=== PATIENT | female | born 1995 | race Caucasian/White ===

== ENCOUNTER 2016-09-22 01:03 | Inpatient (IN) | payer OTHER ==
[2016-09-22 02:10] LABS: % IMMATURE GRANULYOCYTES 0.1 % (0.0-1.1); ABSOLUTE IMMATURE GRANULOCYTES 0.01 10^3/uL (0.00-0.10); ADD DIFF? NO; ADD MORPH? NO; ADD SCAN? NO; ATYPICAL LYMPHOCYTE FLAG 10 (0-99); FRAGMENT RBC FLAG 0 (0-99); HEMATOCRIT 41.1 % (38.0-47.0); HEMOGLOBIN 13.9 g/dL (12.6-16.3); LEFT SHIFT FLG 0 (0-99); LIPEMIA HEMOLYSIS FLAG 90 (0-99); MEAN CELL HEMOGLOBIN 27.4 pg (27.9-34.1); MEAN CELL HEMOGLOBIN CONCENTR. 33.8 g/dL (32.4-36.7); MEAN CELL VOLUME 81.1 fL (81.5-99.8); MEAN PLATELET VOLUME 10.3 fL (8.7-11.7); PLATELET CLUMPS FLAG 0 (0-99); PLATELET COUNT 330 10^3/uL (150-400); RED BLOOD CELL COUNT 5.07 10^6/uL (4.18-5.33); RED CELL DISTRIBUTION WIDTH 14.2 % (11.5-15.2)
[2016-09-22] MEDS ORDERED: traZODone 50 MG TAB PO ONE (02:11)
--- NOTE | 2016-09-22 02:17 | EDPHY ---
H & P Stated Complaint: SI Source: Patient Exam Limitations: No limitations - Personal History LMP (Females 10-55): Now Current Tetanus/Diphtheria Vaccine: Yes Current Tetanus Diphtheria and Acellular Pertussis (TDAP): Yes - Medical/Surgical History Hx Asthma: No Hx Chronic Respiratory Disease: No Hx Diabetes: No Hx Cardiac Disease: No Hx Renal Disease: No Hx Cirrhosis: No Hx Alcoholism: No Hx HIV/AIDS: No Hx Splenectomy or Spleen Trauma: No Other PMH: OCD, ADD, Anxiety, Eating Disorder - Social History Smoking Status: Never smoked Time Seen by Provider: 09/22/16 01:07 HPI/ROS: HPI The patient presents with suicidal ideation, here on an M1 hold for evaluation from the crisis Center. She has a history of depression and had a plan to drink a bottle of NyQuil in addition to taking all of her medications. She was not sure what would happen if she did this but thought that she could . She also has not been taking her Zoloft for the last several days. She denies any medical complaints. REVIEW OF SYSTEMS Constitutional: No fever, no chills. Eyes: No discharge. ENT: No sore throat. Cardiovascular: No chest pain, no palpitations. Respiratory: No cough, no shortness of breath. Gastrointestinal: No abdominal pain, no vomiting. Genitourinary: No hematuria. Musculoskeletal: No back pain. Skin: No rashes. Neurological: No headache. PMHx: Depression, OCD, anxiety, eating disorder Soc Hx: Smokes marijuana, drinks alcohol, college daniel studying political science PHYSICAL General Appearance: Alert, no distress Eyes: Pupils equal and round no pallor or injection ENT, Mouth: Mucous membranes moist Respiratory: There are no retractions, lungs are clear to auscultation Cardiovascular: Regular rate and rhythm Gastrointestinal: Abdomen is soft and non-tender, no masses, bowel sounds normal Neurological: A&O, moves all extremities Skin: Warm and dry, no rashes Musculoskeletal: Neck is supple non tender Extremities: symmetrical, full range of motion Psychiatric: Patient is oriented X 3, there is no agitation (Riguzzi,Opal) Constitutional: Initial Vital Signs Temperature (C) 36.7 C 09/22/16 01:13 Heart Rate 78 09/22/16 01:13 Respiratory Rate 16 09/22/16 01:13 Blood Pressure 134/87 H 09/22/16 01:13 O2 Sat (%) 98 09/22/16 01:13 O2 Delivery Mode Room Air Allergies/Adverse Reactions: oseltamivir phosphate [From Tamiflu] Allergy (Verified 09/22/16 01:13) Home Medications: Medication Instructions Recorded Lisdexamfetamine Dimesylate 50 mg PO DAILY 09/22/16 [Vyvanse] Sertraline HCl [Zoloft 100mg (*)] 100 mg PO HS 09/22/16 busPIRone [Buspar (*)] 15 mg PO BID 09/22/16 traZODone [traZODONE 50MG (*)] 25 mg PO HS 09/22/16 Medical Decision Making ED Course/Re-evaluation: The patient has been stable throughout her time in the emergency room. She is awaiting psychiatric evaluation. She has been given a dose of her Zoloft as well as trazodone to help her sleep. Her labs are unremarkable. At 7:00 a.m., the case will be signed out to Dr. Barth to follow-up on her plans after evaluation. (Opal Emerson) Differential Diagnosis: This is a 21-year-old who carries multiple psychiatric diagnoses who presents on an M1 hold for suicidal ideation with plan to drink a bottle of NyQuil. On exam, she is well-appearing, she has no medical complaints. Plan for basic labs and mental health evaluation. Differential diagnosis includes suicidal ideation related to depression, polysubstance abuse, psychosis. (Opal Emerson) Other Provider: I assumed care of the patient at 0700. Update at 1:30 p.m.: The patient has been accepted for inpatient psychiatric hospitalization by Dr. Retana. I have filled out the EMTALA transfer sheet. (Kwame Barth) - Data Points Laboratory Results: Laboratory Results 09/22/16 01:59 09/22/16 01:59 09/22/16 09/22/16 02:39 01:59 WBC 8.46 10^3/uL (3.80-9.50) RBC 5.07 10^6/uL (4.18-5.33) Hgb 13.9 g/dL (12.6-16.3) Hct 41.1 % (38.0-47.0) MCV 81.1 L fL (81.5-99.8) MCH 27.4 L pg (27.9-34.1) MCHC 33.8 g/dL (32.4-36.7) RDW 14.2 % (11.5-15.2) Plt Count 330 10^3/uL (150-400) MPV 10.3 fL (8.7-11.7) Neut % (Auto) 49.1 % (39.3-74.2) Lymph % (Auto) 40.1 % (15.0-45.0) Powell % (Auto) 7.4 % (4.5-13.0) Eos % (Auto) 2.5 % (0.6-7.6) Baso % (Auto) 0.8 % (0.3-1.7) Nucleat RBC Rel Count 0.0 % (0.0-0.2) Absolute Neuts (auto) 4.15 10^3/uL (1.70-6.50) Absolute Lymphs (auto) 3.39 H 10^3/uL (1.00-3.00) Absolute Monos (auto) 0.63 10^3/uL (0.30-0.80) Absolute Eos (auto) 0.21 10^3/uL (0.03-0.40) Absolute Basos (auto) 0.07 10^3/uL (0.02-0.10) Absolute Nucleated RBC 0.00 10^3/uL (0-0.01) Immature Gran % 0.1 % (0.0-1.1) Immature Gran # 0.01 10^3/uL (0.00-0.10) Sodium 143 mEq/L (134-144) Potassium 3.5 mEq/L (3.5-5.2) Chloride 109 mEq/L (97-110) Carbon Dioxide 23 mEq/l (22-31) Anion Gap 11 mEq/L (8-16) BUN 9 mg/dL (7-23) Creatinine 0.6 mg/dL (0.6-1.0) Estimated GFR > 60 Glucose 95 mg/dL (70-100) Calcium 9.3 mg/dL (8.5-10.4) Total Bilirubin 0.5 mg/dL (0.1-1.4) AST 19 IU/L (14-46) ALT 25 IU/L (9-52) Alkaline Phosphatase 56 IU/L (38-126) Total Protein 6.7 g/dL (6.3-8.2) Albumin 3.9 g/dL (3.5-5.0) Urine Opiates Screen NEGATIVE (NEGATIVE) Urine Barbiturates NEGATIVE (NEGATIVE) Ur Phencyclidine Scrn NEGATIVE (NEGATIVE) Ur Amphetamine Screen NON-NEGATIVE H (NEGATIVE) U Benzodiazepines Scrn NEGATIVE (NEGATIVE) Urine Cocaine Screen NEGATIVE (NEGATIVE) U Marijuana (THC) Screen NEGATIVE (NEGATIVE) Ethyl Alcohol < 10 mg/dL (0-10) Medications Given: Discontinued Medications Trazodone HCl (Trazodone) 50 mg PO EDNOW ONE Stop: 09/22/16 02:12 Last Admin: 09/22/16 03:13 Dose: 25 mg Departure - Departure Disposition: [facility] [employer] IP Clinical Impression: Suicidal ideation Depression Qualifiers: Depression Type: major depressive disorder Major depression recurrence: recurrent Psychotic features: without psychotic features Condition: Fair Instructions: Depression (ED) Referrals: NONE *PRIMARY CARE P,. [Primary Care Provider] - As per Instructions
[2016-09-22 02:19] LABS: ALANINE AMINOTRANSFERASE 25 IU/L (9-52); ALBUMIN 3.9 g/dL (3.5-5.0); ALKALINE PHOSPHATASE 56 IU/L (38-126); ANION GAP 11 mEq/L (8-16); ASPARTATE AMINOTRANSFERASE 19 IU/L (14-46); BILIRUBIN,TOTAL 0.5 mg/dL (0.1-1.4); CALCIUM 9.3 mg/dL (8.5-10.4); CARBON DIOXIDE 23 mEq/l (22-31); CHLORIDE 109 mEq/L (97-110); CREATININE 0.6 mg/dL (0.6-1.0); ETHANOL SERUM < 10 mg/dL (0-10); GLOMERULAR FILTRATION RATE > 60; GLUCOSE 95 mg/dL (70-100); POTASSIUM 3.5 mEq/L (3.5-5.2); SODIUM 143 mEq/L (134-144); TOTAL PROTEIN 6.7 g/dL (6.3-8.2)
[2016-09-22] MEDS: SERTRALINE HCL 100 MG TAB PO SCH ×2 (02:30→11:07)
[2016-09-22] MEDS ORDERED: LORazepam 0.5 MG TAB PO PRN ×2 (12:06→14:57)
[2016-09-22] MEDS ORDERED: MAG HYDROX/AL HYDROX/SIMETH 30 ML UDCUP PO PRN (12:06)
[2016-09-22] MEDS ORDERED: OLANZapine DISINTEGR 10 MG TAB PO PRN ×2 (12:06→14:57)
[2016-09-22] MEDS ORDERED: NICOTINE POLACRILEX 2 MG GUM B PRN ×2 (12:06→14:57)
[2016-09-22] MEDS ORDERED: MAGNESIUM HYDROXIDE 30 ML UDCUP PO PRN ×2 (12:06→14:57)
[2016-09-22] MEDS ORDERED: ACETAMINOPHEN 325 MG TAB PO PRN (12:06)
[2016-09-22] MEDS ORDERED: BUSPAR 15 MG PO SCH ×2 (12:15→14:30)
[2016-09-22] MEDS: ACETAMINOPHEN 325 MG TAB PO PRN (16:45)
[2016-09-22] MEDS ORDERED: TRAZODONE 50 MG PO SCH ×2 (21:00)
[2016-09-22] MEDS: traZODone 50 MG TAB PO SCH (21:17)
[2016-09-22] MEDS: busPIRone 15 MG TAB PO SCH (21:18)
[2016-09-23] MEDS: busPIRone 15 MG TAB PO SCH ×2 (08:51→22:13)
[2016-09-23] MEDS: SERTRALINE HCL 100 MG TAB PO SCH ×2 (08:51→09:02)
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
--- NOTE | 2016-09-23 16:40 | BCON ---
[f rep st] BEHAVIORAL HEALTH CONSULTATION INTERNAL MEDICINE CONSULTATION DATE OF CONSULTATION: 09/23/2016 REFERRING PHYSICIAN: Zechariah Marcos MD REASON FOR REFERRAL: Medical clearance for inpatient behavioral health stay. HISTORY OF PRESENT ILLNESS: The patient was sent to the emergency department from the [facility]. She had called and expressed suicidal ideation. She reported that she had been self-tapering her Zoloft. She was evaluated by the mental health team and admitted for further psychiatric care. She reports left shoulder pain. She currently is without any acute complaints. PAST MEDICAL HISTORY: 1. 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 2. Very mild asthma. MEDICATIONS: Prior to admission: 1. Sertraline 100 mg p.o. q.h.s. 2. Trazodone 25 mg p.o. q.h.s. 3. Lisdexamfetamine 50 mg p.o. daily. 4. Buspirone 15 mg p.o. b.i.d. ALLERGIES: Listed to oseltamivir phosphate. SOCIAL HISTORY: She is a student. She works at [employer] part-time. She lives with roommates. She is a nonsmoker and not an alcohol user. FAMILY HISTORY: Noncontributory regarding medical issues. REVIEW OF SYSTEMS: She denies any pain conditions that might be associated with neurofibromatosis. She denies dyspnea or cough and otherwise, a 10-point review of systems is negative. PHYSICAL EXAM: VITAL SIGNS: Blood pressure is 96/54, heart rate is 70, respiratory rate 14, oxygen saturation is 95% on room air, temperature is 36.3 degrees centigrade. Her weight is listed at 68 kg with a body mass index of 27.4; however, she does not appear to be overweight so it is likely that either the weight or the height is inaccurate. GENERAL: This is a well-nourished, well-developed woman appears her chronologic age, cooperative, and in no acute distress. HEENT: Extraocular movements are intact. Pupils are equal, round, and reactive to light. Mucous membranes are moist. Dentition is in good condition. NECK: Supple. HEART: There is a regular rate and rhythm with no murmurs, rubs, or gallops. LUNGS: Clear to auscultation bilaterally. ABDOMEN : Soft, nontender, nondistended with normoactive bowel sounds. EXTREMITIES: There is no cyanosis, clubbing, or edema. Shoulders with full range of motion. NEUROLOGIC: She is alert and oriented x3. Cranial nerves 2-12 are grossly intact. There is no focal weakness, and sensations is intact to light touch and gait is within normal limits. LABORATORY STUDIES: From the emergency department showed a CBC that was overall within normal limits, but for a slight decrement of MCV and MCH likely of no clinical significance. Serum chemistry revealed normal renal function, electrolytes, and liver functions. Toxicology in the serum was negative for ethyl alcohol. Toxicology in the urine was non-negative for amphetamines and was otherwise negative for substances of abuse. ASSESSMENT AND RECOMMENDATIONS: 1. Mental health issues: Pending further evaluation and management per Psychiatry and the mental health team. 2. Shoulder pain: She does not seem to have any significant injury. Acetaminophen has been prescribed and this should be adequate. 3. Neurofibromatosis without any associated pain conditions or obvious deformities. 4. Asthma, mild, asymptomatic. I see no medical contraindications to the patient's continued stay in the inpatient behavioral health unit, or to any psychiatric medications or procedures. Thank you very much for including me in the care of this patient, and please do not hesitate to contact me or the hospitalist service should there be need for further medical evaluation. /[id number]/MODL MTDD
[2016-09-23] MEDS: IBUPROFEN 600 MG TAB PO PRN (19:27)
[2016-09-23] MEDS: MAG HYDROX/AL HYDROX/SIMETH 30 ML UDCUP PO PRN (19:28)
[2016-09-23] MEDS: traZODone 50 MG TAB PO SCH (22:13)
[2016-09-23] MEDS: ACETAMINOPHEN 325 MG TAB PO PRN (22:20)
[2016-09-24] MEDS: busPIRone 15 MG TAB PO SCH ×2 (09:01→22:17)
--- NOTE | 2016-09-24 13:26 | SOAPPROG ---
SOAP Progress Note Assessment/Plan: Assessment: Plan: 09/24/16 13:25 Remains withdrawn, guarded. SI persists. Will continue to engage. Continue current meds and active d/c planning. Subjective: Pt seen, discussed with staff. Not very interactive, stating she is tired. Has been interactive with fellow patients, but guarded or reserved with staff. I reviewed her current medications with her and she doesn't want to take anything but the buspirone and trazodone. Objective: Vital Signs Temp Pulse Resp BP Pulse Ox 36.5 C 72 12 117/55 L 96 09/24/16 06:25 09/24/16 06:25 09/24/16 06:25 09/24/16 06:25 09/24/16 06:25 MSE: Calm, guarded. Affect is constricted, stable. Mood is "not too good." TP linear. TC reveals no psychosis. Endorses active SI. - Time Spent With Patient Time Spent With Patient: 15" ICD10 Worksheet Patient Problems: Problems Problem Status Diagnosed Depression Acute Suicidal ideation Acute
[2016-09-24] MEDS: traZODone 50 MG TAB PO SCH (22:17)
[2016-09-24] MEDS: MAG HYDROX/AL HYDROX/SIMETH 30 ML UDCUP PO PRN (23:10)
[2016-09-25] MEDS: busPIRone 15 MG TAB PO SCH ×2 (09:22→22:08)
--- NOTE | 2016-09-25 12:07 | SOAPPROG ---
SOAP Progress Note Assessment/Plan: Assessment: Pt is a 21 y/o S C female with a hx of Depression and ADHD with previously undiagnosed Borderline PD who was put on an M1 for SI with a plan to OD. Plan:Will D/C pt tomorrow will continue current meds pt is attending groups and working on coping skills her mood is improving Pt is VOL 09/25/16 12:09 Subjective: "I feel safe in the groups." Objective: Vital Signs Temp Pulse Resp BP Pulse Ox 36.5 C 98 14 129/73 H 96 09/25/16 02:06 09/25/16 02:06 09/25/16 02:06 09/25/16 02:06 09/25/16 02:06 Pt is A+O x4 mood-euthymic affect-appr thoughts-logical speech-wnl no A/V H vague SI -chronic no HI sleep/appetite/energy level-improving no sx of psychosis/cheng memory/conc-intact no LEE I/J-fair - Time Spent With Patient Time Spent With Patient: 25' - Pending Discharge Pending Discharge Within 24 Hours: Yes Pending Discharge Within 48 Hours: Yes Pending Discharge Date: 09/26/16 Pending Discharge Time: 11:00 ICD10 Worksheet Patient Problems: Problems Problem Status Diagnosed Depression Acute Suicidal ideation Acute
[2016-09-25] MEDS: IBUPROFEN 600 MG TAB PO PRN (16:16)
[2016-09-25] MEDS: MAG HYDROX/AL HYDROX/SIMETH 30 ML UDCUP PO PRN (20:12)
[2016-09-25] MEDS: traZODone 50 MG TAB PO SCH (22:08)
[2016-09-26 06:29] VITALS: BP 103/52; PULSE 66; RESP 12; TEMP 97.8; O2SAT 98
[2016-09-26] MEDS: busPIRone 15 MG TAB PO SCH (09:01)
--- NOTE | 2016-10-05 21:42 | BDS ---
[f rep st] BEHAVIORAL HEALTH DISCHARGE SUMMARY Date of Admission 09/22/16 Date of Discharge 09/26 CHIEF COMPLAINT: "Suicidal ideation." HISTORY OF PRESENT ILLNESS: The patient is a 21-year-old single female who identifies as a "non-binary queer" with a history of depression, anxiety, and an eating disorder who was put on an M1 hold after evaluation at the [facility] crisis center and was transferred to the [facility] ED. She reported she had a plan to drink a bottle of NyQuil in addition to taking all her medications. She was not sure what would happen if she did this but thought she could . The patient also stated that she has been tapering off her Zoloft and had withdrawal symptoms such as brain zaps and was angry that she was having those withdrawal symptoms. She decided to taper down her Zoloft because she had been on it of 2 years and it has made her have decreased motivation in school and has not helped her mood. The patient states she no longer wants to be on an antidepressant but was okay with continuing BuSpar and trazodone, which she has also been taking. She sees a psychiatrist every 2 months at [facility] and has a therapist at [facility] which is an eating disorder program. The patient had no previous psychiatric hospitalizations and no history of suicide attempts. DIAGNOSES ON ADMISSION: 1. Depression, not otherwise specified 2. Eating disorder, not otherwise specified. 3. Anxiety disorder, not otherwise specified. 4. Borderline personality disorder 5.. Attention deficit hyperactivity disorder by history. 7. Cannabis use disorder, moderate. 8.Alcohol use disorder, mild. no medical problems GAF on admission-20 HOSPITAL COURSE: Zoloft was discontinued. BuSpar was continued at 15 mg b.i.d. as well as Trazodone 50 mg q.h.s. She was also told she could continue Vyvanse 50 mg daily, which she took for ADHD as it was not on the hospital formulary.The patient participated in groups and activities. She was very childlike on the unit often talking in a child's voice, and curling up with a stuffed animal. She clearly met criteria for diagnosis of borderline personality disorder and had an eating disorder and gender confusion. She denied suicidal ideation throughout her hospitalization and the day she was discharged and she felt safe to leave. Urine toxicology was positive for amphetamines (she is prescribed Vyvanse for ADHD). CBC was normal and chem panel was within normal limits. She signed in VOL when her M1 . MENTAL STATUS ON DISCHARGE: The patient is alert and oriented x4. Mood is euthymic. Affect is appropriate. Thoughts logical and coherent. Speech normal rate and rhythm. Sleep, appetite, energy level are improved. Mood is in normal limits. IQ, fund of knowledge, memory, concentration are normal. No suicidal or homicidal ideation. No auditory or visual hallucinations. No symptoms of psychosis or cheng. Insight and judgment are improved since admission. DISCHARGE DIAGNOSES: 1. Depression, not otherwise specified 2. Eating disorder, not otherwise specified. 3. Anxiety disorder, not otherwise specified. 4. Borderline personality disorder. 5. Attention deficit hyperactivity disorder by history. 6. Cannabis use disorder, moderate. 7. Alcohol use disorder, mild. no acute medical problems [place] V on admission was 20. DISCHARGE PLAN: The patient will follow up with her psychiatrist at [facility] and her therapist at [facility]. She had appointments set up by the [employer]. The patient stayed for all groups the day of discharge. Her friend will pick her up. The patient is medically and psychiatrically stable for discharge and was discharged voluntarily. /[id number]/MODL MTDD
== END 2016-09-26 15:45 | disposition home or self-care (01) | DRG 881 ==
LOC: BBEH 14:50
PROVIDERS: ADMIT Psychiatry & Neurology Psychiatry; ATTEND Psychiatry & Neurology Psychiatry
DX: F32.9 Major depressive disorder, single episode, unspecified (principal); M25.519 Pain in unspecified shoulder; Q85.00 Neurofibromatosis, unspecified; J45.909 Unspecified asthma, uncomplicated; F50.9 Eating disorder, unspecified; F41.9 Anxiety disorder, unspecified; F60.3 Borderline personality disorder
CPT/HCPCS: 80305; G0480

== ENCOUNTER → 2017-01-18 | Outpatient (CLI) | payer OTHER | LOC: FCPNEURO 21:30 | PROVIDERS: ATTEND Internal Medicine Sleep Medicine | DX: G47.50 Parasomnia, unspecified (principal) ==

== ENCOUNTER 2017-02-18 18:43 | Emergency (ER) | payer OTHER ==
[2017-02-18 18:54] VITALS: RESP 16
--- NOTE | 2017-02-18 19:19 | EDPHY ---
H & P Stated Complaint: SI - plan: take meds drink ETOH - Personal History LMP (Females 10-55): 8-14 Days Ago Current Tetanus/Diphtheria Vaccine: Yes Current Tetanus Diphtheria and Acellular Pertussis (TDAP): Yes - Medical/Surgical History Hx Asthma: No Hx Chronic Respiratory Disease: No Hx Diabetes: No Hx Cardiac Disease: No Hx Renal Disease: No Hx Cirrhosis: No Hx Alcoholism: No Hx HIV/AIDS: No Hx Splenectomy or Spleen Trauma: No Other PMH: OCD, ADD, Anxiety, Eating Disorder, neurofibromatosis - Social History Smoking Status: Never smoked Time Seen by Provider: 02/18/17 19:01 HPI/ROS: Chief Complaint: Suicidal ideation HPI: 21-year-old female with past medical history depression is presenting with worsening suicidal ideation for the last 24 hours. She has a plan to take all her medications with some alcohol. She states he has increasing stressors of switching therapist. Denies any recent ingestions. Is not hearing voices. No thoughts of harming others. No nausea or vomiting. No abdominal pain. No fevers or chills. Otherwise without complaint. She has a history of prior suicidal ideation in the past. ROS: 10 point Review of Systems is negative except as noted in the HPI. PMH: Depression, attention deficit hyperactivity disorder Allergies: Tamiflu Social History: No smoking, occasional alcohol, occasional marijuana Family History: non-contributory Physical Exam: Gen: Awake, Alert, No Distress HEENT: Nose: no rhinorrhea Eyes: PERRLA, EOMI Mouth: Moist mucosa Neck: Supple, no JVD Chest: nontender, lungs clear to auscultation Heart: S1, S2 normal, no murmur Abd: Soft, non-tender, no guarding Back: no CVA tenderness, no midline tenderness Ext: no edema, non-tender Skin: no rash Neuro: CN II-XII intact, Sensation grossly intact, Strength 5/5 in bilateral upper and lower extremities (Carlos Eduardo Lowe) Constitutional: Initial Vital Signs Temperature (C) 36.5 C 02/18/17 18:49 Heart Rate 73 02/18/17 18:49 Respiratory Rate 16 02/18/17 18:49 Blood Pressure 125/67 H 02/18/17 18:49 O2 Sat (%) 98 02/18/17 18:49 O2 Delivery Mode Room Air Allergies/Adverse Reactions: oseltamivir phosphate [From Tamiflu] Allergy (Verified 09/22/16 01:13) Home Medications: Medication Instructions Recorded Lisdexamfetamine Dimesylate 50 mg PO DAILY PRN 09/22/16 [Vyvanse] busPIRone [Buspar (*)] 15 mg PO BID #30 tab 09/26/16 traZODone [traZODONE 50MG (*)] 50 mg PO HS #30 tab 09/26/16 fluvoxaMINE MALEATE [Fluvoxamine 150 mg PO BID 02/18/17 Maleate ER] Medical Decision Making ED Course/Re-evaluation: 2210 patient is medically cleared. Mental health evaluation has been requested [address] Govea pending mental health evaluation (Carlos Eduardo Loew) 2351: This patient has been placed on M1 hold. They obtained a bed search. There is hope for admission to [address] [place] [id number] in the morning. 0331AM: This patient has been accepted by Dr. Olguin at [address] [place] [id number]. Patient be most likely transferred after 7:00 a.m. due to staffing. (Fabian Govea) Other Provider: Patient accepted to [facility], accepting Dr. Quigley. (Arturo Sanchez) - Data Points Laboratory Results: Laboratory Results 02/18/17 19:50 02/18/17 19:50 Medications Given: Discontinued Medications Acetaminophen (Tylenol) 1,000 mg PO EDNOW ONE Stop: 02/18/17 21:52 Last Admin: 02/18/17 21:54 Dose: 1,000 mg Buspirone HCl (Buspar) 15 mg PO ONCE ONE Stop: 02/19/17 01:11 Last Admin: 02/19/17 01:30 Dose: 15 mg Fluvoxamine Maleate (Luvox) 150 mg PO ONCE ONE Stop: 02/19/17 01:15 Last Admin: 02/19/17 01:30 Dose: 150 mg Trazodone HCl (Trazodone) 50 mg PO EDNOW ONE Stop: 02/19/17 01:11 Last Admin: 02/19/17 01:30 Dose: 50 mg Departure - Departure Disposition: Other Psych, Not [facility] Clinical Impression: Suicidal ideation Condition: Fair Referrals: NONE *PRIMARY CARE P,. [Primary Care Provider] - As per Instructions
[2017-02-18 19:55] LABS: % IMMATURE GRANULYOCYTES 0.3 % (0.0-1.1); ABSOLUTE IMMATURE GRANULOCYTES 0.02 10^3/uL (0.00-0.10); ADD DIFF? NO; ADD MORPH? NO; ADD SCAN? NO; ATYPICAL LYMPHOCYTE FLAG 10 (0-99); FRAGMENT RBC FLAG 0 (0-99); HEMOGLOBIN 14.6 g/dL (12.6-16.3); LEFT SHIFT FLG 0 (0-99); LIPEMIA HEMOLYSIS FLAG 80 (0-99); MEAN CELL HEMOGLOBIN 26.6 pg (27.9-34.1); MEAN CELL HEMOGLOBIN CONCENTR. 32.4 g/dL (32.4-36.7); PLATELET CLUMPS FLAG 0 (0-99); PLATELET COUNT 342 10^3/uL (150-400); RED BLOOD CELL COUNT 5.49 10^6/uL (4.18-5.33); RED CELL DISTRIBUTION WIDTH 13.9 % (11.5-15.2)
[2017-02-18 20:12] LABS: ANION GAP 13 mEq/L (8-16); CALCIUM 10.7 mg/dL (8.5-10.4); CARBON DIOXIDE 23 mEq/l (22-31); CHLORIDE 104 mEq/L (97-110); CREATININE 0.9 mg/dL (0.6-1.0); ETHANOL SERUM < 10 mg/dL (0-10); GLOMERULAR FILTRATION RATE > 60; GLUCOSE 68 mg/dL (70-100); POTASSIUM 4.2 mEq/L (3.5-5.2); SODIUM 140 mEq/L (134-144)
[2017-02-18] MEDS ORDERED: ACETAMINOPHEN 500 MG TAB PO ONE (21:51)
[2017-02-18 23:19] VITALS: TEMP 98.4
[2017-02-19] MEDS ORDERED: fluvoxaMINE MALEATE 50 MG TAB PO ONE ×2 (01:09→01:14)
[2017-02-19] MEDS ORDERED: traZODone 50 MG TAB PO ONE (01:10)
[2017-02-19] MEDS ORDERED: busPIRone 15 MG TAB PO ONE ×2 (01:10→13:02)
[2017-02-19 07:39] VITALS: BP 128/88; PULSE 59; O2SAT 94
[2017-02-19] MEDS ORDERED: ACETAMINOPHEN 325 MG TAB PO ONE (13:03)
== END 2017-02-19 13:49 ==
DX: R45.851 Suicidal ideations (principal)
CPT/HCPCS: 80305; G0480